=== PATIENT | male | born 1955 ===

== ENCOUNTER 2018-12-15 11:34 | Day surgery (SDC) | payer OTHER ==
[~2018-12-15] VITALS: Ht 188 cm; Wt 83.6 kg
[~2018-12-15 11:34] MED LIST: ALBU90OI; FLUT1DIS2; FLUT1DIS5; Flonase 0.05% N16 GM; THYR60; TIZA4
== END 2018-12-15 13:48 | disposition home or self-care (01) ==
LOC: ORSCSDS 11:34
PROVIDERS: Internal Medicine Gastroenterology
PROC: 0DBK8ZX Excision of Ascending Colon, Via Natural or Artificial Opening Endoscopic, Diagnostic (ICD-10-PCS; principal; 2018-12-15 12:45)
PROC: 0DBN8ZX Excision of Sigmoid Colon, Via Natural or Artificial Opening Endoscopic, Diagnostic (ICD-10-PCS; principal; 2018-12-15 12:45)
DX: Z12.11 Encounter for screening for malignant neoplasm of colon (principal); D12.2 Benign neoplasm of ascending colon; D12.5 Benign neoplasm of sigmoid colon; K64.8 Other hemorrhoids; K21.9 Gastro-esophageal reflux disease without esophagitis; E03.9 Hypothyroidism, unspecified; E78.00 Pure hypercholesterolemia, unspecified; I10 Essential (primary) hypertension; F32.9 Major depressive disorder, single episode, unspecified; Z79.899 Other long term (current) drug therapy
CPT/HCPCS: 88305; J2704; J7120

== ENCOUNTER 2022-12-14 09:21 | Day surgery (SDC) | payer MEDICARE ==
[~2022-12-14] VITALS: Ht 188 cm; Wt 89.1 kg
[2022-12-14] MEDS ORDERED: ASPI81CH (10:22)
[2022-12-14] MEDS ORDERED: TAMS.4ER (10:22)
[2022-12-14] MEDS ORDERED: LEVSOD100 (10:22)
--- NOTE | 2022-12-14 12:23 | NUR ---
12/14/[address] ORDERED A BASELINE 12 LEAD EKG
--- NOTE | 2022-12-14 12:25 | NUR ---
12/14/22 1225 NICA LENZ 12 LEAD EKG ORERED PER DR FORDE FOR A BASELINE EKG
[2022-12-14 12:26] VITALS: BP 103/60
== END 2022-12-14 12:20 | disposition home or self-care (01) ==
LOC: ORSCSDS 09:21
PROVIDERS: Internal Medicine Gastroenterology
PROC: 0DJD8ZZ Inspection of Lower Intestinal Tract, Via Natural or Artificial Opening Endoscopic (ICD-10-PCS; principal; 2022-12-14 11:15)
DX: Z12.11 Encounter for screening for malignant neoplasm of colon (principal); Z86.010 Personal history of colon polyps; D17.5 Benign lipomatous neoplasm of intra-abdominal organs; J45.909 Unspecified asthma, uncomplicated; K21.9 Gastro-esophageal reflux disease without esophagitis; Z79.82 Long term (current) use of aspirin; Z79.899 Other long term (current) drug therapy
CPT/HCPCS: 93005; 93010; J2704; J7120